=== PATIENT | female | born 1995 | race Asian ===

== ENCOUNTER 2020-09-04 16:02 | Emergency (ER) | payer OTHER, SELFPAY ==
[~2020-09-04] VITALS: Ht 170.2 cm; Wt 63.5 kg
[2020-09-04 16:02] VITALS: BP_SYST 126
== END 2020-09-04 16:50 | disposition home or self-care (01) ==
LOC: SED 16:02
DX: U07.1 COVID-19 (principal)
CPT/HCPCS: 99281